=== PATIENT | male | born 1980 ===

== ENCOUNTER 2017-05-29 08:52 | Emergency (ER) | payer OTHER ==
[2017-05-29 09:01] VITALS: BMI 29.2
[2017-05-29 09:02] VITALS: BP 129/87; PULSE 94; RESP 16; TEMP 100.1; O2SAT 94
--- NOTE | 2017-05-29 11:01 | ED PDOC ---
HPI: CCC, URI, Sore Throat Time Seen by Provider: 05/29/17 09:27 Chief Complaint (Nursing): Flu-like Symptoms Chief Complaint (Provider): Flu-likes symptoms History Per: Patient History/Exam Limitations: no limitations Onset/Duration Of Symptoms: Days (x3) Current Symptoms Are (Timing): Still Present Sick Contacts (Context): None Associated Symptoms: Cough (productive w/ green phlegm), Vomiting (x1 episode), Other (body aches, runny nose, sinus pressure) Ear Symptoms: Bilateral: None Additional Complaint(s): Arjun Montero is a 36 year old male, with no significant past medical history, who presents to the emergency department complaining of productive cough with green phlegm, body aches, runny nose, sinus pressure and x1 episode of vomiting onset for x3 days. Patient denies similar symptoms in the past. He denies any exacerbating or alleviating factors, no recent travel and no sick contacts. No further medical complaints. PMD: None provided. Past Medical History Reviewed: Historical Data, Nursing Documentation, Vital Signs Vital Signs: Last Vital Signs Temp 100.1 F H 05/29/17 09:01 Pulse 94 H 05/29/17 09:01 Resp 16 05/29/17 09:01 BP 129/87 05/29/17 09:01 Pulse Ox 94 L 05/29/17 11:07 - Medical History PMH: No Chronic Diseases - Surgical History Surgical History: No Surg Hx - Family History Family History: States: Unknown Family Hx - Social History Current smoker - smoking cessation education provided: No Alcohol: None Drugs: Denies - Home Medications Home Medications: Ambulatory Orders Medication Instructions Recorded Albuterol HFA [Ventolin HFA 90 2 puff IH [id number] PRN #60 puff 05/29/17 mcg/actuation (8 g)] Azithromycin 250 mg PO DAILY 4 Days #4 tablet 05/29/17 - Allergies Allergies/Adverse Reactions: Allergies Allergy/AdvReac Type Severity Reaction Status Date / Time No Known Allergies Allergy Verified 05/29/17 09:04 Review of Systems ROS Statement: Except As Marked, All Systems Reviewed And Found Negative Constitutional: Positive for: Other (body aches) ENT: Positive for: Nose Discharge, Other (sinus pressure) Respiratory: Positive for: Cough (productive w/ green phlegm. ) Gastrointestinal: Positive for: Vomiting (x1 episode) Physical Exam - Reviewed Nursing Documentation Reviewed: Yes Vital Signs Reviewed: Yes - Physical Exam Appears: Positive for: Non-toxic, No Acute Distress, Uncomfortable Head Exam: Positive for: ATRAUMATIC, NORMAL INSPECTION, NORMOCEPHALIC Skin: Positive for: Normal Color, Warm, Dry Eye Exam: Positive for: Normal appearance, EOMI, PERRL ENT: Positive for: Normal ENT Inspection Neck: Positive for: Painless ROM, Supple Cardiovascular/Chest: Positive for: Regular Rate, Rhythm. Negative for: Murmur Respiratory: Positive for: Normal Breath Sounds. Negative for: Respiratory Distress Gastrointestinal/Abdominal: Positive for: Normal Exam, Soft. Negative for: Tenderness, Guarding, Rebound Back: Positive for: Normal Inspection. Negative for: L CVA Tenderness, R CVA Tenderness, Vertebral Tenderness Extremity: Positive for: Normal ROM. Negative for: Deformity, Swelling Neurologic/Psych: Positive for: Alert, Oriented - ECG O2 Sat by Pulse Oximetry: 94 (RA) Pulse Ox Interpretation: Abnormal Medical Decision Making Medical Decision Making: Initial Impression: Viral illness Initial Plan: --Chest two views (PA/LAT) [RAD] --Tylenol 325mg tab 650 mg PO --reevaluation --CXR show mild interstitial changes, possible early infiltrate in left lower lobe. No lobar infiltrate. --Patient states symptoms have improved. Upon provider evaluation patient is medically stable, and requires no further treatment in the ED at this time. Patient will be discharged home. Counseling was provided and all questions were answered regarding diagnosis and need for follow up with PMD. There is agreement to discharge plan. Return if symptoms persist or worsen. Scribe Attestation: Documented by Jose Enriquez, acting as a scribe for Pablo Lantigua MD Provider Scribe Attestation: All medical record entries made by the Scribe were at my direction and personally dictated by me. I have reviewed the chart and agree that the record accurately reflects my personal performance of the history, physical exam, medical decision making, and the department course for this patient. I have also personally directed, reviewed, and agree with the discharge instructions and disposition. Disposition - Clinical Impression Clinical Impression: Bronchitis Counseled Patient/Family Regarding: Studies Performed, Diagnosis, Need For Followup, Rx Given - Disposition Referrals: [facility] [Outside] (2 to 3 days) Disposition: Routine/Home Disposition Time: 11:00 Condition: GOOD Prescriptions: Albuterol HFA [Ventolin HFA 90 mcg/actuation (8 g)] 2 puff IH [id number] PRN #60 puff PRN Reason: Cough Azithromycin 250 mg PO DAILY 4 Days #4 tablet Instructions: Acute Bronchitis (ED) Forms: [facility] ([place]), [facility] ED School/Work Excuse
--- NOTE | 2017-05-29 12:27 | RAD ---
HISTORY: Cough. COMPARISON: No prior. TECHNIQUE: Chest PA and lateral FINDINGS: LUNGS: Prominent pulmonary markings compatible with lower airways disease, bronchitis. No discrete infiltrates PLEURA: No significant pleural effusion identified. No pneumothorax apparent. CARDIOVASCULAR: Normal. OSSEOUS STRUCTURES: No significant abnormalities. VISUALIZED UPPER ABDOMEN: Normal. OTHER FINDINGS: None. IMPRESSION: Increased interstitial markings compatible with lower airways disease. No discrete pulmonary infiltrates. Concordant results with the preliminary interpretation rendered by the emergency department physician procedure.
== END 2017-05-29 11:46 | disposition home or self-care (01) ==
LOC: H.ER 08:52
DX: J40 Bronchitis, not specified as acute or chronic (principal)